=== PATIENT | female | born 1985 | race Caucasian/White ===

== ENCOUNTER 2017-01-27 09:17 | Day surgery (SDC) | payer BC ==
[~2017-01-27] VITALS: Ht 170.2 cm; Wt 68.0 kg
[2017-01-27] MEDS ORDERED: CEFAZOLIN 1 GM IVPB PREMIX 50 ML IV ONE (10:19)
[2017-01-27 10:20] LABS: BASOPHILS % (AUTO) 0.4 % (0.0-2.0); EOSINOPHILS # (AUTO) 0.1 K/uL (0.0-0.4); EOSINOPHILS % (AUTO) 1.1 % (0.0-4.0); HEMATOCRIT 40.5 % (36-48); HEMOGLOBIN 13.9 g/dL (12.0-16.0); LYMPHOCYTES # (AUTO) 1.7 K/uL (1.0-5.5); LYMPHOCYTES % (AUTO) 23.3 % (20.5-51.5); MEAN CORPUSCULAR HEMOGLOBIN 32 pg (27-31); MEAN CORPUSCULAR HGB CONC 34 % (32-36); MEAN CORPUSCULAR VOLUME 92 fL (79.0-98.0); MONOCYTES # (AUTO) 0.5 K/uL (0.0-1.0); MONOCYTES % (AUTO) 7.2 % (1.7-9.3); NEUTROPHILS # (AUTO) 4.8 K/uL (1.8-7.7); PLATELET COUNT (AUTO) 158 K/uL (130-430); RED CELL DISTRIBUTION WIDTH 11.5 % (9.0-15.0); WHITE BLOOD COUNT (AUTO) 7.1 K/uL (4.8-10.8)
[2017-01-27] MEDS ORDERED: MIDAZOLAM HCL 5 MG/5 ML VIAL IVP ONE (10:45)
[2017-01-27] MEDS ORDERED: SEVOFLURANE 15 MIN GAS INH ONE (10:45)
[2017-01-27] MEDS ORDERED: MIVACURIUM CHLORIDE 20 MG/10 ML VIAL (MIVACRON) INJ ONE (10:45)
[2017-01-27] MEDS ORDERED: KETOROLAC TROMETHAMINE 30 MG VIAL IVP ONE (10:45)
[2017-01-27] MEDS ORDERED: PROPOFOL 200MG/ 20ML VIAL (DIPRIVAN) IV ONE (10:45)
[2017-01-27] MEDS ORDERED: ONDANSETRON HCL 4 MG/2 ML VIAL IVP ONE (10:45)
[2017-01-27] MEDS ORDERED: NS IRRIG SOLN 1000 ML IR ONE (10:45)
[2017-01-27] MEDS ORDERED: SUCCINYLCHOLINE CHLORIDE 20 MG/ML(QUELICIN) IVP ONE (10:45)
[2017-01-27] MEDS ORDERED: OXYTOCIN 10 UNIT/ML VIAL IV ONE (10:45)
[2017-01-27] MEDS ORDERED: fentaNYL CITRATE/PF 100 MCG/2 ML AMP IVP ONE (10:45)
[2017-01-27] MEDS ORDERED: LR 1,000 ML IV.SOLN IV ONE (10:45)
[2017-01-27] MEDS ORDERED: OXYCODONE/ACETAMINOPHEN 5-325 TABLET PO PRN (11:30)
[2017-01-27] MEDS ORDERED: HYDROcodone/ACETAMIN 5-325 MG TAB (NORCO/ VICODIN) PO PRN (11:30)
[2017-01-27] MEDS ORDERED: ONDANSETRON HCL 4 MG/2 ML VIAL IVP PRN (11:30)
[2017-01-27 12:29] VITALS: BP_SYST 113
== END 2017-01-27 13:05 | disposition home or self-care (01) ==
LOC: SDS 09:17
PROVIDERS: ATTEND Specialist
DX: O03.9 Complete or unspecified spontaneous abortion without complication (principal)
CPT/HCPCS: 36415; 59812; 85025; 86900; 86901; 88305; J0690; J7120; J0330; J1885; J2250; J2405; J2590; J2704; J3010

== ENCOUNTER 2018-11-09 05:20 | Inpatient (IN) | payer BC ==
[~2018-11-09] VITALS: Ht 172.7 cm; Wt 77.1 kg
[2018-11-09 05:54] VITALS: BP_SYST 124
[2018-11-09 06:27] LABS: BILIRUBIN,URINE NEGATIVE (NEGATIVE); BLOOD, URINE NEGATIVE (NEGATIVE); CLARITY/URINE CLEAR (CLEAR); COLOR,URINE YELLOW (YELLOW); GLUCOSE,URINE NEGATIVE (NEGATIVE); KETONES,URINE NEGATIVE (NEGATIVE); LEUKOCYTE ESTERASE ,URINE TRACE (NEGATIVE); NITRITE, URINE NEGATIVE (NEGATIVE); PROTEIN URINE NEGATIVE (NEGATIVE); UROBILINOGEN,URINE 0.2 (0.2-1.0)
[2018-11-09 06:31] LABS: BACTERIA,URINE MODERATE /HPF (None Seen); RBC,URINE 0-3 /HPF (0-3)
[2018-11-09 06:56] LABS: BASOPHILS % (AUTO) 0.4 % (0.0-2.0); EOSINOPHILS % (AUTO) 0.5 % (0.0-4.0); HEMATOCRIT 35.3 % (36-48); HEMOGLOBIN 12.5 g/dL (12.0-16.0); LYMPHOCYTES # (AUTO) 2.4 K/uL (1.0-5.5); MEAN CORPUSCULAR HEMOGLOBIN 35 pg (27-31); MEAN CORPUSCULAR HGB CONC 36 % (32-36); MEAN CORPUSCULAR VOLUME 98 fL (79.0-98.0); MONOCYTES # (AUTO) 0.7 K/uL (0.0-1.0); MONOCYTES % (AUTO) 8.5 % (1.7-9.3); NEUTROPHILS # (AUTO) 5.1 K/uL (1.8-7.7); NEUTROPHILS % (AUTO) 61.6 % (40.0-70.0); RED BLOOD CELL COUNT(AUTO) 3.61 MIL/uL (4.2-6.2); RED CELL DISTRIBUTION WIDTH 15.8 % (9.0-15.0); WHITE BLOOD COUNT (AUTO) 8.2 K/uL (4.8-10.8)
[2018-11-09] MEDS ORDERED: CEFAZOLIN 1 GM IVPB PREMIX 50 ML IV ONE (07:00)
[2018-11-09] MEDS ORDERED: LR 1,000 ML IV ONE (07:00)
[2018-11-09 07:21] LABS: PLATELET COUNT (AUTO) 84 K/uL (130-430)
[2018-11-09] MEDS ORDERED: OXYTOCIN/0.9 % SODIUM CHLORIDE 1,000 ML IV ONE (07:52)
[2018-11-09] MEDS ORDERED: LR 1,000 ML IV SCH ×2 (07:52→08:08)
[2018-11-09] MEDS ORDERED: DIPH-TET-PERTUS Vaccine 0.5 ML VIAL (ADACEL) I.M. PRN (08:00)
[2018-11-09] MEDS ORDERED: HYDROcodone/ACETAMIN 5-325 MG TAB (NORCO/ VICODIN) PO PRN (08:00)
[2018-11-09] MEDS ORDERED: NS IRRIG SOLN 1000 ML IR ONE (08:00)
[2018-11-09] MEDS ORDERED: MEASLES,MUMPS&RUBELLA VACC/PF 12500 UNIT/0.5 ML VIAL SUBQ PRN (08:00)
[2018-11-09] MEDS ORDERED: BISACODYL 10 MG/SUPPOSITORY RC PRN (08:00)
[2018-11-09] MEDS ORDERED: ONDANSETRON HCL 4 MG/2 ML VIAL ONE (08:00)
[2018-11-09] MEDS ORDERED: CEFAZOLIN 2 GM IVPB PREMIX 50 ML IV ONE (08:00)
[2018-11-09] MEDS ORDERED: MIDAZOLAM HCL 5 MG/ML VIAL (VERSED) IV ONE (08:00)
[2018-11-09] MEDS ORDERED: OXYTOCIN 10 UNIT/ML VIAL ONE ×2 (08:00→08:42)
[2018-11-09] MEDS ORDERED: MORPHINE SULFATE 10MG/10ML PF AMP ONE (08:00)
[2018-11-09] MEDS ORDERED: LANOLIN 7 GM OINT. TP PRN (08:00)
[2018-11-09] MEDS ORDERED: RHO(D) IMMUNE GLOBULIN/MALTOSE 1500 UNITS/1.3 ML (WINHRO) IM PRN (08:00)
[2018-11-09] MEDS ORDERED: ANUSOL 1 EA SUPP.RECT (PREPARATION H) RC PRN (08:00)
[2018-11-09] MEDS ORDERED: LR 1,000 ML IV.SOLN IV ONE (08:00)
[2018-11-09] MEDS ORDERED: ePHEDrine sulfate 50 MG/ML VIAL ONE (08:00)
[2018-11-09] MEDS ORDERED: OXYCODONE/ACETAMINOPHEN 5-325 TABLET PO PRN (08:00)
[2018-11-09] MEDS ORDERED: BUPIVACAINE /PF 0.75% 10 ML VIAL INJ ONE (08:00)
[2018-11-09] MEDS ORDERED: ONDANSETRON HCL 4 MG/2 ML VIAL IVP PRN (08:15)
[2018-11-09] MEDS ORDERED: DIPHENHYDRAMINE INJ 50 MG/ML VIAL IM PRN (08:15)
[2018-11-09] MEDS ORDERED: METOCLOPRAMIDE HCL 10 MG/2 ML VIAL IVP PRN (08:15)
[2018-11-09] MEDS ORDERED: KETOROLAC TROMETHAMINE 60 MG/2 ML VIAL IM PRN (08:15)
[2018-11-09] MEDS ORDERED: MORPHINE SULFATE 10MG/10ML PF AMP SP SCH (08:15)
[2018-11-09] MEDS ORDERED: NALOXONE HCL 0.4 MG/ML AMP (NARCAN) IVP PRN (08:15)
[2018-11-09 09:19] VITALS: BP_SYST 101
[2018-11-09] MEDS ORDERED: IBUPROFEN 600 MG TABLET PO SCH (12:00)
[2018-11-09] MEDS: CEFAZOLIN 1 GM IVPB PREMIX 50 ML IV SCH ×2 (18:05→23:50)
[2018-11-09 19:30] LABS: BASOPHILS % (AUTO) 0.3 % (0.0-2.0); EOSINOPHILS % (AUTO) 0.2 % (0.0-4.0); HEMATOCRIT 28.9 % (36-48); HEMOGLOBIN 10.2 g/dL (12.0-16.0); LYMPHOCYTES # (AUTO) 1.7 K/uL (1.0-5.5); LYMPHOCYTES % (AUTO) 17.7 % (20.5-51.5); MEAN CORPUSCULAR HEMOGLOBIN 35 pg (27-31); MEAN CORPUSCULAR HGB CONC 35 % (32-36); MEAN CORPUSCULAR VOLUME 98 fL (79.0-98.0); MONOCYTES # (AUTO) 0.6 K/uL (0.0-1.0); MONOCYTES % (AUTO) 6.7 % (1.7-9.3); NEUTROPHILS % (AUTO) 75.1 % (40.0-70.0); RED BLOOD CELL COUNT(AUTO) 2.96 MIL/uL (4.2-6.2); RED CELL DISTRIBUTION WIDTH 15.8 % (9.0-15.0); WHITE BLOOD COUNT (AUTO) 9.4 K/uL (4.8-10.8)
[2018-11-09 19:47] LABS: PLATELET COUNT (AUTO) 95 K/uL (130-430)
[2018-11-09] MEDS ORDERED: TEMAZEPAM 15 MG CAPSULE PO PRN (21:00)
[2018-11-09] MEDS: OXYCODONE/ACETAMINOPHEN 5-325 TABLET PO PRN (23:13)
[2018-11-10] MEDS: OXYCODONE/ACETAMINOPHEN 5-325 TABLET PO PRN ×4 (05:00→18:09)
[2018-11-10] MEDS: DOCUSATE SODIUM 100 MG CAPSULE PO PRN ×2 (05:00→08:38)
[2018-11-10] MEDS: SIMETHICONE 80 MG TAB.CHEW PO PRN ×4 (05:00→18:10)
[2018-11-10] MEDS ORDERED: ACETAMINOPHEN 325 MG TABLET PO PRN (06:00)
[2018-11-10] MEDS: MEPERIDINE HCL/PF 100 MG/ML AMP IM PRN ×2 (15:30→23:09)
[2018-11-11] MEDS: OXYCODONE/ACETAMINOPHEN 5-325 TABLET PO PRN ×5 (04:53→21:33)
[2018-11-11] MEDS: DOCUSATE SODIUM 100 MG CAPSULE PO PRN ×3 (09:51→21:34)
[2018-11-11] MEDS: SENNOSIDES/DOCUSATE SODIUM 1 TAB TABLET(SENOKOT-S) PO PRN ×2 (12:10→18:05)
[2018-11-11] MEDS: SIMETHICONE 80 MG TAB.CHEW PO PRN ×3 (12:11→21:34)
[2018-11-11] MEDS: MEPERIDINE HCL/PF 100 MG/ML AMP IM PRN (17:03)
[2018-11-12] MEDS: OXYCODONE/ACETAMINOPHEN 5-325 TABLET PO PRN ×3 (01:44→11:38)
[2018-11-12] MEDS: SIMETHICONE 80 MG TAB.CHEW PO PRN ×2 (06:06→11:38)
[2018-11-12] MEDS: DOCUSATE SODIUM 100 MG CAPSULE PO PRN (06:06)
== END 2018-11-12 13:56 | disposition home or self-care (01) | DRG 787 ==
LOC: SPU 05:20 → UNDOADMIN 05:20
PROVIDERS: ADMIT Specialist; ATTEND Specialist
PROC: 10D00Z1 Extraction of Products of Conception, Low, Open Approach (ICD-10-PCS; principal; 2018-11-09 07:00)
DX: O44.03 Complete placenta previa NOS or without hemorrhage, third trimester (principal); O99.12 Other diseases of the blood and blood-forming organs and certain disorders involving the immune mechanism complicating childbirth; D69.6 Thrombocytopenia, unspecified; Z3A.38 38 weeks gestation of pregnancy; Z37.0 Single live birth
CPT/HCPCS: 36415; 81000-TC; 85025; 86592; 86706; 86762; 86886; 86900; 86901; 87086; 94760; J0690; J1200; J2175; J2250; J2274; J2405; J2590; J3490; J7120

== ENCOUNTER 2020-10-01 11:33 | Day surgery (SDC) | payer BC, SELFPAY ==
[~2020-10-01] VITALS: Ht 172.7 cm; Wt 67.1 kg
[2020-10-01] MEDS ORDERED: HYDROcodone/ACETAMIN 5-325 MG TAB (NORCO/ VICODIN) PO PRN ×2 (15:00→18:45)
[2020-10-01] MEDS ORDERED: ONDANSETRON HCL 4 MG/2 ML VIAL IVP PRN (15:00)
[2020-10-01] MEDS ORDERED: OXYCODONE/ACETAMINOPHEN 5-325 TABLET PO PRN ×4 (15:00→18:45)
[2020-10-01] MEDS ORDERED: LR 1,000 ML IV.SOLN IV ONE (15:03)
[2020-10-01] MEDS ORDERED: METOCLOPRAMIDE HCL 10 MG/2 ML VIAL IVP ONE (15:03)
[2020-10-01] MEDS ORDERED: CEFAZOLIN 2 GM IVPB PREMIX 50 ML IV ONE (15:03)
[2020-10-01] MEDS ORDERED: OXYTOCIN 10 UNIT/ML VIAL IV ONE (15:03)
[2020-10-01] MEDS ORDERED: SEVOFLURANE 15 MIN GAS INH ONE (15:03)
[2020-10-01] MEDS ORDERED: PROPOFOL 200MG/ 20ML VIAL (DIPRIVAN) IV ONE (15:03)
[2020-10-01] MEDS ORDERED: MIDAZOLAM HCL 5 MG/5 ML VIAL IVP ONE (15:03)
[2020-10-01] MEDS ORDERED: fentaNYL CITRATE/PF 100 MCG/2 ML AMP IVP ONE (15:03)
[2020-10-01] MEDS ORDERED: DEXAMETHASONE SOD PHOSPHATE 4 MG/ML VIAL IVP ONE (15:03)
[2020-10-01] MEDS ORDERED: LR 1,000 ML IV SCH (15:45)
[2020-10-01] MEDS ORDERED: HYDROmorphone 2 MG/ML VIAL IVP PRN ×2 (15:45)
[2020-10-01] MEDS ORDERED: HYDROmorphone 1 MG/ML INJ. CARTRIDGE IVP PRN (15:45)
[2020-10-01] MEDS ORDERED: MEPERIDINE HCL/PF 25 MG/ML DISP.SYRIN IVP PRN (15:45)
[2020-10-01 17:00] VITALS: BP_SYST 113
== END 2020-10-01 17:00 | disposition home or self-care (01) ==
LOC: SDS 11:33 → SMU 11:45 → SDS 17:00
PROVIDERS: ATTEND Specialist
DX: O03.4 Incomplete spontaneous abortion without complication (principal); Z79.82 Long term (current) use of aspirin; Z79.899 Other long term (current) drug therapy; Z20.822 Contact with and (suspected) exposure to COVID-19
CPT/HCPCS: 36415; 59812; 87426; 88305; J0690; J1100; J2250; J2590; J2704; J2765; J3010; J7120

== ENCOUNTER 2021-10-17 05:35 | Inpatient (IN) | payer BC ==
[2021-10-16 14:01] LABS: BILIRUBIN,URINE NEGATIVE (NEGATIVE); BLOOD, URINE NEGATIVE (NEGATIVE); CLARITY/URINE CLOUDY (CLEAR); COLOR,URINE YELLOW (YELLOW); GLUCOSE,URINE NEGATIVE (NEGATIVE); KETONES,URINE NEGATIVE (NEGATIVE); LEUKOCYTE ESTERASE ,URINE TRACE (NEGATIVE); NITRITE, URINE NEGATIVE (NEGATIVE); PROTEIN URINE NEGATIVE (NEGATIVE); UROBILINOGEN,URINE 0.2 (0.2-1.0)
[2021-10-16 14:15] LABS: BACTERIA,URINE MANY /HPF (None Seen); RBC,URINE 0-3 /HPF (0-3)
[~2021-10-17] VITALS: Ht 172.7 cm; Wt 74.8 kg
[2021-10-17 05:53] VITALS: BP_SYST 117
[2021-10-17] MEDS ORDERED: METOCLOPRAMIDE HCL 10 MG/2 ML VIAL IVP ONE (06:00)
[2021-10-17] MEDS ORDERED: CITRIC ACID/SODIUM CITRATE 30 ML UDC PO ONE (06:00)
[2021-10-17] MEDS ORDERED: CEFAZOLIN 1 GM IVPB PREMIX 50 ML IV ONE (06:00)
[2021-10-17] MEDS ORDERED: LR 1,000 ML IV ONE (06:00)
[2021-10-17] MEDS ORDERED: CEFAZOLIN 2 GM IVPB PREMIX 50 ML IV ONE (06:45)
[2021-10-17] MEDS ORDERED: DEXAMETHASONE SOD PHOSPHATE 4 MG/ML VIAL IVP ONE (07:50)
[2021-10-17] MEDS ORDERED: NS IRRIG SOLN 1000 ML IR ONE (07:50)
[2021-10-17] MEDS ORDERED: OXYTOCIN 10 UNIT/ML VIAL IV ONE (07:50)
[2021-10-17] MEDS ORDERED: LR 1,000 ML IV.SOLN IV ONE (07:50)
[2021-10-17] MEDS ORDERED: MORPHINE SULFATE 10MG/10ML PF AMP EP ONE (07:50)
[2021-10-17] MEDS ORDERED: ONDANSETRON HCL 4 MG/2 ML VIAL IVP ONE (07:50)
[2021-10-17 07:54] LABS: BASOPHILS % (AUTO) 0.6 % (0.0-2.0); HEMATOCRIT 34.6 % (36-48); LYMPHOCYTES # (AUTO) 1.7 K/uL (1.0-5.5); LYMPHOCYTES % (AUTO) 22.8 % (20.5-51.5); MEAN CORPUSCULAR VOLUME 102 fL (79.0-98.0); MONOCYTES # (AUTO) 0.6 K/uL (0.0-1.0); MONOCYTES % (AUTO) 8.3 % (1.7-9.3); NEUTROPHILS # (AUTO) 4.9 K/uL (1.8-7.7); NEUTROPHILS % (AUTO) 68.3 % (40.0-70.0); RED BLOOD CELL COUNT(AUTO) 3.41 MIL/uL (4.2-6.2); RED CELL DISTRIBUTION WIDTH 14.8 % (9.0-15.0); WHITE BLOOD COUNT (AUTO) 7.2 K/uL (4.8-10.8)
[2021-10-17] MEDS ORDERED: ceFAZolin SODIUM 2 GM VIAL ONE (08:12)
[2021-10-17] MEDS ORDERED: KETOROLAC TROMETHAMINE 60 MG/2 ML VIAL IM PRN (08:45)
[2021-10-17] MEDS ORDERED: NALOXONE HCL 0.4 MG/ML AMP (NARCAN) IVP PRN ×5 (08:45→09:00)
[2021-10-17] MEDS ORDERED: METOCLOPRAMIDE HCL 10 MG/2 ML VIAL IVP PRN (08:45)
[2021-10-17] MEDS ORDERED: MORPHINE SULFATE 10MG/10ML PF AMP SP SCH (08:45)
[2021-10-17] MEDS ORDERED: DIPHENHYDRAMINE INJ 50 MG/ML VIAL IV PRN (08:45)
[2021-10-17] MEDS ORDERED: KETOROLAC TROMETHAMINE 30 MG VIAL IVP PRN (08:45)
[2021-10-17] MEDS ORDERED: ONDANSETRON HCL 4 MG/2 ML VIAL IVP PRN (08:45)
[2021-10-17] MEDS ORDERED: HYDROmorphone 1 MG/ML INJ. CARTRIDGE IVP PRN ×3 (08:45→21:00)
[2021-10-17] MEDS ORDERED: MEASLES,MUMPS&RUBELLA VACC/PF 12500 UNIT/0.5 ML VIAL SUBQ PRN (09:00)
[2021-10-17] MEDS ORDERED: HYDROcodone/ACETAMIN 5-325 MG TAB (NORCO/ VICODIN) PO PRN (09:00)
[2021-10-17] MEDS ORDERED: DIPHTH,PERTUSS(ACELL),TET VAC 0.5 ML VIAL (Tdap) I.M. PRN (09:00)
[2021-10-17] MEDS ORDERED: HYDROmorphone 1 MG/ML INJ. CARTRIDGE IM PRN (09:00)
[2021-10-17] MEDS ORDERED: LANOLIN 7 GM OINT. TP PRN (09:00)
[2021-10-17] MEDS ORDERED: TEMAZEPAM 15 MG CAPSULE PO PRN (09:00)
[2021-10-17] MEDS ORDERED: LR 1,000 ML IV SCH (09:00)
[2021-10-17] MEDS ORDERED: BISACODYL 10 MG/SUPPOSITORY RC PRN (09:00)
[2021-10-17] MEDS ORDERED: ANUSOL 1 EA SUPP.RECT (PREPARATION H) RC PRN (09:00)
[2021-10-17] MEDS ORDERED: OXYCODONE/ACETAMINOPHEN 5-325 TABLET PO PRN (09:00)
[2021-10-17 09:13] VITALS: BP_SYST 118
[2021-10-17] MEDS: OXYTOCIN/0.9 % SODIUM CHLORIDE 1,000 ML IV SCH ×2 (12:08→19:06)
[2021-10-17 12:38] LABS: HEMOGLOBIN 12.2 g/dL (12.0-16.0); MEAN CORPUSCULAR HEMOGLOBIN 36 pg (27-31); MEAN CORPUSCULAR HGB CONC 35 % (32-36)
[2021-10-17 12:41] LABS: PLATELET COUNT (AUTO) 65 K/uL (130-430)
[2021-10-17] MEDS: ACETAMINOPHEN I.V. 1000 MG 100 ML IV SCH ×2 (15:14→21:31)
[2021-10-17] MEDS: CEFAZOLIN 1 GM IVPB PREMIX 50 ML IV SCH ×2 (17:58→23:54)
[2021-10-17 20:19] LABS: BASOPHILS % (AUTO) 0.3 % (0.0-2.0); EOSINOPHILS % (AUTO) 0.1 % (0.0-4.0); HEMATOCRIT 31.2 % (36-48); LYMPHOCYTES # (AUTO) 1.9 K/uL (1.0-5.5); LYMPHOCYTES % (AUTO) 21.1 % (20.5-51.5); MEAN CORPUSCULAR VOLUME 101 fL (79.0-98.0); MONOCYTES # (AUTO) 0.6 K/uL (0.0-1.0); MONOCYTES % (AUTO) 6.9 % (1.7-9.3); NEUTROPHILS # (AUTO) 6.5 K/uL (1.8-7.7); NEUTROPHILS % (AUTO) 71.6 % (40.0-70.0); PLATELET COUNT (AUTO) 60 K/uL (130-430); RED CELL DISTRIBUTION WIDTH 14.4 % (9.0-15.0)
[2021-10-17] MEDS ORDERED: HYDROmorphone 2 MG/ML VIAL IVP PRN (21:00)
[2021-10-18] MEDS: ACETAMINOPHEN I.V. 1000 MG 100 ML IV SCH (02:56)
[2021-10-18] MEDS: OXYTOCIN/0.9 % SODIUM CHLORIDE 1,000 ML IV SCH (03:53)
[2021-10-18] MEDS: SIMETHICONE 80 MG TAB.CHEW PO PRN ×3 (05:40→20:22)
[2021-10-18] MEDS: CEFAZOLIN 1 GM IVPB PREMIX 50 ML IV SCH (05:40)
[2021-10-18] MEDS: OXYCODONE/ACETAMINOPHEN *10*mg/325 mg TABLET PO PRN ×4 (05:41→20:23)
[2021-10-18 07:12] LABS: BASOPHILS % (AUTO) 0.3 % (0.0-2.0); EOSINOPHILS % (AUTO) 0.2 % (0.0-4.0); HEMATOCRIT 30.1 % (36-48); LYMPHOCYTES # (AUTO) 2.3 K/uL (1.0-5.5); LYMPHOCYTES % (AUTO) 28.4 % (20.5-51.5); MEAN CORPUSCULAR VOLUME 101 fL (79.0-98.0); MONOCYTES # (AUTO) 0.5 K/uL (0.0-1.0); NEUTROPHILS # (AUTO) 5.3 K/uL (1.8-7.7); NEUTROPHILS % (AUTO) 65.1 % (40.0-70.0); PLATELET COUNT (AUTO) 54 K/uL (130-430); RED BLOOD CELL COUNT(AUTO) 2.96 MIL/uL (4.2-6.2); RED CELL DISTRIBUTION WIDTH 14.7 % (9.0-15.0); WHITE BLOOD COUNT (AUTO) 8.2 K/uL (4.8-10.8)
[2021-10-18] MEDS: DOCUSATE SODIUM 100 MG CAPSULE PO SCH ×2 (09:20→20:23)
[2021-10-18] MEDS: DECADRON 4 MG TABLET PO SCH (13:15)
[2021-10-18] MEDS: SENNOSIDES/DOCUSATE SODIUM 1 TAB TABLET(SENOKOT-S) PO SCH (20:23)
[2021-10-19] MEDS: SIMETHICONE 80 MG TAB.CHEW PO PRN ×6 (00:11→20:13)
[2021-10-19] MEDS: OXYCODONE/ACETAMINOPHEN *10*mg/325 mg TABLET PO PRN ×6 (00:12→20:13)
[2021-10-19] MEDS ORDERED: CALCIUM CARBONATE 500 MG/ TAB.CHEW PO PRN (00:15)
[2021-10-19] MEDS: DOCUSATE SODIUM 100 MG CAPSULE PO SCH ×2 (08:26→20:13)
[2021-10-19] MEDS: DECADRON 4 MG TABLET PO SCH (12:40)
[2021-10-19] MEDS: SENNOSIDES/DOCUSATE SODIUM 1 TAB TABLET(SENOKOT-S) PO SCH (20:13)
[2021-10-20] MEDS: OXYCODONE/ACETAMINOPHEN *10*mg/325 mg TABLET PO PRN ×4 (00:01→12:14)
[2021-10-20] MEDS: SIMETHICONE 80 MG TAB.CHEW PO PRN ×2 (04:18→08:38)
[2021-10-20] MEDS: DOCUSATE SODIUM 100 MG CAPSULE PO SCH (08:38)
[2021-10-20] MEDS: DECADRON 4 MG TABLET PO SCH (12:14)
[2021-10-20] MEDS ORDERED: PERC10 PO (13:14)
== END 2021-10-20 13:25 | disposition home or self-care (01) | DRG 784 ==
LOC: SPU 05:35
PROVIDERS: ADMIT Specialist; ATTEND Specialist
PROC: 10D00Z1 Extraction of Products of Conception, Low, Open Approach (ICD-10-PCS; principal; 2021-10-19)
PROC: 0UT70ZZ Resection of Bilateral Fallopian Tubes, Open Approach (ICD-10-PCS; 2021-10-19)
DX: O34.211 Maternal care for low transverse scar from previous cesarean delivery (principal); O99.12 Other diseases of the blood and blood-forming organs and certain disorders involving the immune mechanism complicating childbirth; Z20.822 Contact with and (suspected) exposure to COVID-19; D69.6 Thrombocytopenia, unspecified; Z3A.38 38 weeks gestation of pregnancy; Z37.0 Single live birth; Z30.2 Encounter for sterilization
CPT/HCPCS: 36415; 81000; 82962; 85025; 86886; 86900; 86901; 86920; 87086; 88302; 94760; J0131; J0690; J1100; J1170; J2274; J2405; J2590; J7120; J8540; U0003